=== PATIENT | male | born 1975 | race Caucasian/White ===

== ENCOUNTER 2018-10-27 14:59 | Emergency (ER) | payer OTHER ==
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
--- NOTE | 2018-10-27 15:50 | XR ---
EXAMINATION TYPE: XR chest 2V DATE OF EXAM: 10/27/2018 COMPARISON: None INDICATION: Pain TECHNIQUE: Frontal and lateral views of the chest are obtained. FINDINGS: The heart size is normal. The pulmonary vasculature is normal. The lungs are clear. IMPRESSION: 1. No acute pulmonary process.
[2018-10-27 16:41] VITALS: BP 118/71; PULSE 83; RESP 14; TEMP 98.5
== END 2018-10-27 16:40 | disposition home or self-care (01) ==
LOC: EC 14:59
DX: T75.1XXA Unspecified effects of drowning and nonfatal submersion, initial encounter (principal); W69.XXXA Accidental drowning and submersion while in natural water, initial encounter; Y92.828 Other wilderness area as the place of occurrence of the external cause
CPT/HCPCS: 71046; 99285